=== PATIENT | male | born 1955 | race Caucasian/White ===

== ENCOUNTER 2017-07-15 17:13 | Emergency (ER) | payer BC ==
[2017-07-15 17:56] VITALS: BP 125/76
[2017-07-15] MEDS ORDERED: Take Home: LORazepam 0.5 MG Tab, 2 Tab Pack PO ONE (18:20)
[2017-07-15] MEDS ORDERED: PARoxetine 20 MG Tab ONE (18:37)
--- NOTE | 2017-07-16 20:37 | EDM.PDOCBH ---
ED HPI GENERAL MEDICAL PROBLEM - General Chief Complaint: Behavioral/Psych Stated Complaint: panic attack Time Seen by Provider: 07/15/17 17:50 Source of Information: Reports: Patient History Limitations: Reports: No Limitations - History of Present Illness INITIAL COMMENTS - FREE TEXT/NARRATIVE: Pt. states that he stopped taking his Paxil (30mg daily) in April. Pt. had been on the medication for some time for depression as well as anxiety. Pt. states that gradually, he began experiencing anxiety and states that over the Hol, the symptoms have gotten much worse. He states that he has noticed inability to do his job and participate with his family due to anxiety. He denies any suicidal or homicidal ideation. He denies any street drug use, alcohol use, or changes to his meds. Duration: Getting Worse, Intermittent Abdomen Pain Score (Numeric/FACES): 8 - Related Data Allergies Allergy/AdvReac Type Severity Reaction Status Date / Time No Known Allergies Allergy Verified 07/15/17 17:53 Home Meds: Home Meds PARoxetine HCl [Paxil] 30 mg PO DAILY 10/22/15 [History] PARoxetine HCl [Paxil] 20 mg PO DAILY #2 tablet 07/15/17 [Rx] Past Medical History Gastrointestinal History: Reports: Other (See Below) Other Gastrointestinal History: abdominal pain Other Musculoskeletal History: knee pain and stiffness at times Neurological History: Reports: Concussion Psychiatric History: Reports: Anxiety Dermatologic History: Reports: Eczema - Past Surgical History Musculoskeletal Surgical History: Reports: Arthroscopic Knee Social & Family History - Tobacco Use Smoking Status *Q: Never Smoker - Alcohol Use Days Per Week of Alcohol Use: 7 Number of Drinks Per Day: 6 Total Drinks Per Week: 42 - Recreational Drug Use Recreational Drug Use: No ED ROS GENERAL - Review of Systems Review Of Systems: See Below Constitutional: Reports: No Symptoms HEENT: Reports: No Symptoms Respiratory: Reports: No Symptoms Cardiovascular: Reports: No Symptoms Endocrine: Reports: No Symptoms GI/Abdominal: Reports: No Symptoms : Reports: No Symptoms Musculoskeletal: Reports: No Symptoms Skin: Reports: No Symptoms Neurological: Reports: No Symptoms Psychiatric: Reports: Agitation, Anxiety, Mood Lability Hematologic/Lymphatic: Reports: No Symptoms Immunologic: Reports: No Symptoms ED EXAM, BEHAVIORAL HEALTH - Physical Exam Exam: See Below Exam Limited By: No Limitations General Appearance: Alert, WD/WN, No Apparent Distress Throat/Mouth: Normal Inspection, Normal Lips, Normal Teeth, Normal Gums, Normal Oropharynx, Normal Voice, No Airway Compromise Head: Atraumatic, Normocephalic Neck: Normal Inspection, Supple, Non-Tender, Full Range of Motion Respiratory/Chest: No Respiratory Distress, Lungs Clear, Normal Breath Sounds, No Accessory Muscle Use, Chest Non-Tender Cardiovascular: Normal Peripheral Pulses, Regular Rate, Rhythm, No Edema, No Gallop, No JVD, No Murmur, No Rub GI/Abdominal: Normal Bowel Sounds, Soft, Non-Tender, No Organomegaly, No Distention, No Abnormal Bruit, No Mass Back Exam: Normal Inspection, Full Range of Motion, NT Extremities: Normal Inspection, Normal Range of Motion, Non-Tender, Normal Capillary Refill, No Pedal Edema Neurological: Alert, Normal Mood/Affect, CN II-XII Intact, Normal Cognition, Normal Gait, Normal Reflexes, No Motor/Sensory Deficits, Oriented x 3 Psychiatric: Alert, Normal Affect, Normal Cognition, Normal Mood, Oriented, Restless, Tearful, Agitated Skin Exam: Warm, Dry, Intact, Normal color, No rash COURSE, BEHAVIORAL HEALTH COMP - Course Vital Signs: Last Vital Signs Temp 37.3 C 07/15/17 17:44 Pulse 74 07/15/17 17:44 Resp 16 07/15/17 17:44 BP 125/76 07/15/17 17:44 Pulse Ox 96 07/15/17 17:44 Orders, Labs, Meds: Medications Discontinued Medications Generic Name Dose Route Start Last Admin Trade Name Ronnie PRN Reason Stop Dose Admin Lorazepam 2 packet 07/15/17 18:20 07/15/17 18:31 Take Home: Lorazepam 0.5 Mg, 2 Tab Pack PO 07/15/17 18:21 2 packet ONETIME ONE Administration Departure - Departure Time of Disposition: 18:30 Disposition: Home, Self-Care 01 Condition: Good Clinical Impression: Panic disorder - Discharge Information Prescriptions: PARoxetine HCl [Paxil] 20 mg PO DAILY #2 tablet Instructions: Panic Attacks Referrals: Dorian Plaza MD [Primary Care Provider] - Forms: ED Department Discharge Additional Instructions: Ativan 0.5mg 1-2 tabs twice daily Start Paxil 30mg once daily Follow-up with Dr. Plaza in 7 days Return to ER if you have any suicidal thoughts or thoughts of harming anyone else
== END 2017-07-15 18:45 | disposition home or self-care (01) ==
LOC: VM.ED 17:13
DX: F41.0 Panic disorder [episodic paroxysmal anxiety] (principal); Z79.899 Other long term (current) drug therapy
CPT/HCPCS: 99283; A9270

== ENCOUNTER 2020-02-19 10:30 | Day surgery (SDC) | payer BC, MEDICARE, OTHER ==
[~2020-02-19 10:30] MED LIST: Lactated Ringers 1,000 ML IV SCH
[2020-02-19] MEDS ORDERED: Midazolam 1 MG/ML 2 ML SDV ONE (11:23)
[2020-02-19] MEDS ORDERED: fentaNYL 100 MCG/2 ML SDV ONE (11:23)
[2020-02-19] MEDS ORDERED: Propofol 200 MG/20 ML SDV ONE (11:23)
[2020-02-19 12:22] VITALS: BP 141/86; PULSE 81
--- NOTE | 2020-02-19 14:10 | OR ---
DATE OF SURGERY: 02/19/2020. REFERRING PROVIDER: Dorian Plaza MD PRE-OPERATIVE DIAGNOSES: History of colon polyps. 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 POST-OPERATIVE DIAGNOSES: 1. Two small polyps removed using cold forceps. a. 2 mm polyp at 95 cm. b. 4 mm polyp at 90 cm. 2. Mild diverticulosis. 3. Mild hemorrhoids. 4. Normal-appearing distal ileum. PROCEDURE: Colonoscopy with polypectomy x2 using cold forceps. SURGEON: Fredy Huffman M.D. ANESTHESIA: Monitored anesthesia care. BOWEL PREP: Good. Samuel is a 64-year-old male who was brought to the endoscopy suite after discussing risks and benefits of the procedure. Informed consent was obtained for conscious sedation and colonoscopy with or without biopsy and/or polypectomy. We also discussed possibility of missed lesions. Pre-procedure exam was unremarkable. IV, oxygen, and monitors were placed. The patient was placed in the left lateral decubitus position. Sedation was administered and a digital rectal exam was performed and unremarkable. Colonoscope was passed into the rectum and slowly advanced all the way to the cecum. Cecum was viewed and photographed. Ileocecal valve was intubated and distal ileum was normal in appearance. The colonoscope was slowly withdrawn and the mucosa was closed observed in a direct circumferential manner. The ascending colon was remarkable for 2 mm and 4 mm polyps at 95 and 90 cm respectively. These were removed with cold forceps. Otherwise the transverse colon was unremarkable. The descending colon and sigmoid colon revealed some mild diverticulosis. Retroflexion was performed and rectal mucosa was remarkable for some mild hemorrhoids. Scope was removed. The patient tolerated the procedure well. The patient was monitored until that baseline status. Discharge instructions were reviewed and the patient was discharged in good condition. COMPLICATIONS: None. TOTAL TIME: 22 minutes. ESTIMATED BLOOD LOSS: Less than 1 mL. RECOMMENDATIONS/FOLLOW-UP: We will await results of path report to determine ideal followup interval. I would like to kindly thank Dorian Plaza for this referral. DMB: 02/19/2020 13:34:17 MODL: 02/19/2020 13:52:46 /[id number]
== END 2020-02-19 13:00 | disposition home or self-care (01) ==
LOC: VM.SDS 10:30
PROVIDERS: ATTEND Family Medicine
DX: Z12.11 Encounter for screening for malignant neoplasm of colon (principal); D12.2 Benign neoplasm of ascending colon; K57.30 Diverticulosis of large intestine without perforation or abscess without bleeding; K64.9 Unspecified hemorrhoids; E78.5 Hyperlipidemia, unspecified; E66.9 Obesity, unspecified; F41.8 Other specified anxiety disorders; Z11.59 Encounter for screening for other viral diseases; Z86.010 Personal history of colon polyps; Z98.890 Other specified postprocedural states; Z68.38 Body mass index [BMI] 38.0-38.9, adult
CPT/HCPCS: 00811; 88305; J2250; J2704; J3010; J7120; U0002